=== PATIENT | female | born 2005 | race Caucasian/White ===

== ENCOUNTER → 2024-07-06 09:59 | Outpatient (BNVA) | payer OTHER, SELFPAY | PROVIDERS: Visit Provider Psychiatry & Neurology Psychiatry | DX: Z79.899 Other long term (current) drug therapy (principal) | CPT/HCPCS: 80178 ==

== ENCOUNTER → 2024-07-21 15:22 | Outpatient (BNVA) | payer MEDICAID, SELFPAY | PROVIDERS: Visit Provider Nurse Practitioner Women's Health | DX: Z30.42 Encounter for surveillance of injectable contraceptive (principal) | CPT/HCPCS: 81025 ==

== ENCOUNTER 2024-08-08 20:04 | Emergency (ER) | payer MEDICAID, SELFPAY ==
[2024-08-08 20:10] VITALS: BP 118/85; PULSE 103; RESP 18; TEMP 36.6; O2SAT 98; BMI 38.2
--- NOTE | 2024-08-08 21:20 | W.ED.DENTAL ---
HPI - Dental/Oral General: Chief complaint: Dental/Oral Stated complaint: swollen mouth Time Seen by Provider: 08/08/24 20:15 History of Present Illness: Anita Duran is a 19-year-old female that underwent right wisdom tooth removal on Saturday. Has developed right sided facial pain. Has been taking Tylenol without improvement in her symptoms. She is resting quietly now. She is currently medicated by her care provider. She has received her nightly dose of trazodone and melatonin. She does wake easily though. Related Data Home Medications Medication Instructions Recorded Confirmed acetaminophen 500 mg tablet 500 mg PO Q6H PRN 06/04/24 07/31/24 (Tylenol Extra Strength) bismuth subsalicylate 525 mg/15 mL 525 mg PO Q30M PRN 06/04/24 07/31/24 oral suspension (Pepto-Bismol Max St) cetirizine 10 mg tablet (All Day 10 mg PO DAILY 06/04/24 07/31/24 Allergy (cetirizine)) cholecalciferol (vitamin D3) 25 25 mcg PO DAILY 06/04/24 07/31/24 mcg (1,000 unit) capsule drospirenone 3 mg-ethinyl 1 tab PO DAILY 06/04/24 07/31/24 estradiol 0.02 mg tablet (Lo-Zumandimine (28)) Previous Rx's Medication Instructions Recorded buspirone 15 mg tablet 15 mg PO BID #60 tabs 06/04/24 hydroxyzine HCl 50 mg tablet 75 mg (1.5 x 50 mg) PO BID PRN 06/04/24 anxiety #90 tabs melatonin 10 mg capsule 10 mg PO DAILY #30 caps 06/04/24 trazodone 100 mg tablet 100 mg PO .qhs insomnia #30 tabs 06/04/24 medroxyprogesterone 150 mg/mL 150 mg IM .12 weeks #1 mL 07/21/24 intramuscular suspension (Depo-Provera) lisdexamfetamine 30 mg capsule 30 mg PO QAM 30 days #30 caps 07/31/24 (Vyvanse) lisdexamfetamine 30 mg capsule 30 mg PO QAM 30 days #30 caps 07/31/24 (Vyvanse) lisdexamfetamine 30 mg capsule 30 mg PO QAM 30 days #30 caps 07/31/24 (Vyvanse) lithium carbonate 300 mg capsule See Rx Instructions PO .COMPLEX 07/31/24 #90 caps lurasidone 60 mg tablet (Latuda) 60 mg PO DAILY #30 tabs 07/31/24 ketorolac 10 mg tablet 10 mg PO TID 3 days #9 tabs 08/08/24 Allergies Allergy/AdvReac Type Severity Reaction Status Date / Time Penicillins Allergy Mild rash Verified 08/08/24 20:14 Review of Systems General: Reports: 10 or more systems reviewed and unremarkable except in HPI and below PFSH ED PFSH: Medical History (Updated 08/08/24 @ 21:23 by EMILIANA Suarez) Psychiatric care Social History Smoking and tobacco/nicotine status: never used tobacco/nicotine Physical Exam HENMT: MOUTH IMAGES: 1. Right lower wisdom tooth removal. No evidence of dry socket. TEETH & GINGIVA: Yes teeth discoloration Course Vital Signs: Vital signs: Vital Signs Temperature 97.8 F 08/08/24 20:10 Pulse Rate 103 H 08/08/24 20:10 Respiratory Rate 18 08/08/24 20:10 Blood Pressure 118/85 08/08/24 20:10 Pulse Oximetry 98 08/08/24 20:10 Oxygen Delivery Me thod Room Air 08/08/24 20:10 MDM - Dental/Oral Medical Decision Making Patient evaluated in the emergency department today for dental pain. Here in the ER we gave her 1 dose of Toradol IM. Working to be sending her home on 10 mg of Toradol 3 times a day for 3 days. She needs to follow-up with her dentist on Saturday. Death Clearance Coordinator is agreeable. No radiology studies performed this visit Discharge Plan Discharge Patient Disposition: Home Clinical Impression: Pain, dental Condition: Stable Prescriptions: New ketorolac 10 mg tablet 10 mg PO TID 3 Days Qty: 9 0RF Rx Instructions: Do not take Pepto-Bismol while taking Toradol/ketorolac No Action cetirizine [All Day Allergy (cetirizine)] 10 mg tablet 10 mg PO DAILY drospirenone-ethinyl estradiol [Lo-Zumandimine (28)] 3-0.02 mg tablet 1 tab PO DAILY cholecalciferol (vitamin D3) 25 mcg (1,000 unit) capsule 25 mcg PO DAILY acetaminophen [Tylenol Extra Strength] 500 mg tablet 500 mg PO Q6H PRN Pepto-Bismol Max St 525 mg/15 mL suspension 525 mg PO Q30M PRN Rx Instructions: do not exceed 8 doses in a 24 hour period medroxyprogesterone [Depo-Provera] 150 mg/mL suspension 150 mg IM .12 weeks Qty: 1 1RF Rx Instructions: as directed lisdexamfetamine [Vyvanse] 30 mg capsule 30 mg PO QAM 30 Days Qty: 30 0RF lisdexamfetamine [Vyvanse] 30 mg capsule 30 mg PO QAM 30 Days Qty: 30 0RF lisdexamfetamine [Vyvanse] 30 mg capsule 30 mg PO QAM 30 Days Qty: 30 0RF lithium carbonate 300 mg capsule See Rx Instructions PO .COMPLEX Qty: 90 4RF Rx Instructions: Take one capsule in the morning and two capsules at night. lurasidone [Latuda] 60 mg tablet 60 mg PO DAILY Qty: 30 4RF Rx Instructions: must administer with food (at least 350 calories) buspirone 15 mg tablet 15 mg PO BID Qty: 60 5RF hydroxyzine HCl 50 mg tablet 75 mg PO BID PRN (Reason: anxiety) Qty: 90 5RF melatonin 10 mg capsule 10 mg PO DAILY Qty: 30 5RF trazodone 100 mg tablet 100 mg PO .qhs Qty: 30 5RF Discharge Orders: Discharge ED (Routine); Ordered 08/08/24 Ordered By: Maegan Mcdaniel [facility] [place] Referrals: Nicol Marks DO [Primary Care Provider] - Discharge Diet: Advance as tolerated Discharge Activity: Resume usual activity Patient Instructions: Toothache (ED), Pain Management Activity Restrictions/Additional Instructions: Please take the Toradol as prescribed. Do not take Pepto-Bismol while taking Toradol. Please follow-up with a dentist as planned Coding Level of Care Code ED Pouncing Lathe Operator for Davina Geller
[2024-08-08] MEDS: ketorolac 60 mg/2 mL INJ IM (21:27)
[2024-08-08 21:50] VITALS: BP 127/78; PULSE 72; O2SAT 99
== END 2024-08-08 21:50 | disposition home or self-care (01) ==
PROVIDERS: Emergency Provider Nurse Practitioner; PCP Family Medicine
DX: K08.89 Other specified disorders of teeth and supporting structures (principal)
CPT/HCPCS: 96372; 99284; J1885

== ENCOUNTER 2024-08-09 11:12 | Emergency (ER) | payer MEDICAID, SELFPAY ==
--- NOTE | 2024-08-09 11:22 | ED_ITS ---
HPI - General Adult General: Chief complaint: Dental/Oral Stated complaint: dental pain Time Seen by Provider: 08/09/24 11:16 Source: patient Mode of arrival: ambulatory Limitations: no limitations History of Present Illness: 19-year-old female who had right lower w isdom tooth pulled 1 week ago she has been having pain she is seen here yesterday states that she is not able to take ketorolac as she is on lithium she is continue to have pain rates it a 7 out of 10. Denies any fever Associated symptoms: Reports chest pain; Deny dyspnea, headache(s), nausea, rash or vomiting Related Data Home Medications Medication Instructions Recorded Confirmed bismuth subsalicylate 525 mg/15 mL 525 mg PO Q30M PRN 06/04/24 07/31/24 oral suspension (Pepto-Bismol Max St) cetirizine 10 mg tablet (All Day 10 mg PO DAILY 06/04/24 07/31/24 Allergy (cetirizine)) cholecalciferol (vitamin D3) 25 25 mcg PO DAILY 06/04/24 07/31/24 mcg (1,000 unit) capsule drospirenone 3 mg-ethinyl 1 tab PO DAILY 06/04/24 07/31/24 estradiol 0.02 mg tablet (Lo-Zumandimine (28)) Previous Rx's Medication Instructions Recorded buspirone 15 mg tablet 15 mg PO BID #60 tabs 06/04/24 hydroxyzine HCl 50 mg tablet 75 mg (1.5 x 50 mg) PO BID PRN 06/04/24 anxiety #90 tabs melatonin 10 mg capsule 10 mg PO DAILY #30 caps 06/04/24 trazodone 100 mg tablet 100 mg PO .qhs insomnia #30 tabs 06/04/24 medroxyprogesterone 150 mg/mL 150 mg IM .12 weeks #1 mL 07/21/24 intramuscular suspension (Depo-Provera) lisdexamfetamine 30 mg capsule 30 mg PO QAM 30 days #30 caps 07/31/24 (Vyvanse) lisdexamfetamine 30 mg capsule 30 mg PO QAM 30 days #30 caps 07/31/24 (Vyvanse) lisdexamfetamine 30 mg capsule 30 mg PO QAM 30 days #30 caps 11/08/24 (Vyvanse) lithium carbonate 300 mg capsule See Rx Instructions PO .COMPLEX 07/31/24 #90 caps lurasidone 60 mg tablet (Latuda) 60 mg PO DAILY #30 tabs 07/31/24 ketorolac 10 mg tablet 10 mg PO TID 3 days #9 tabs 08/08/24 acetaminophen 500 mg tablet 500 mg PO Q6H PRN pain #30 tabs 08/09/24 (Tylenol Extra Strength) Allergies Allergy/AdvReac Type Severity Reaction Status Date / Time Penicillins Allergy Mild rash Verified 08/08/24 20:14 Review of Systems Const: Denies: fever(s), chills, body aches or change in appetite ENMT: Denies: throat pain or dental pain Card: Reports: chest pain Resp: Denies: dyspnea GI: Denies: abdominal pain, nausea, vomiting or diarrhea Musc: Denies: neck pain or back pain Skin/Breast: Denies: rash Neuro: Denies: headache(s) PFSH ED PFSH: Medical History Psychiatric care Social History Smoking and tobacco/nicotine status: never used tobacco/nicotine Physical Exam Const: COMMON NORMALS: no acute distress, patient oriented x3 and healthy appearing HENMT: COMMON NORMALS: normocephalic and atraumatic HEAD & SCALP: normocephalic and atraumatic OTHER: Pain where she had her wisdom tooth removed no signs of abscess or infection Neck/C-Spine: COMMON NORMALS: full ROM and supple Chest: COMMONS NORMALS: normal inspection of the chest Resp: COMMON NORMALS: normal respiratory effort Cardio: COMMON NORMALS: regular rate, regular rhythm and No murmurs present (Cardio) RATE: regular rate RHYTHM: regular rhythm Extremity: COMMON NORMALS: normal to inspection Neuro: COMMON NORMALS: patient oriented x3, moves all extremities and no focal motor deficits Psych: COMMON NORMALS: mental status grossly normal, Normal thought process present and cooperative THOUGHT PROCESS: Normal thought process present Skin: COMMON NORMALS: no rashes or lesions noted and no wounds GENERAL SKIN EXAM: no rashes or lesions noted Procedures Nerve Block Nerve Block 1: Time out performed: Yes Local Anesthetic: bupivacaine 0.5% Amount of anesthesia used (mL): 8 Side: right Intraoral Nerve Block: inferior alveolar Procedure Successful: Yes Patient Tolerated Procedure: well Complications: none Course Vital Signs: Vital signs: Vital Signs Temperature 97.9 F 08/09/24 11:23 Pulse Rate 101 H 08/09/24 11:23 Respiratory Rate 18 08/09/24 11:23 Blood Pressure 160/118 08/09/24 11:23 Pulse Oximetry 99 08/09/24 11:23 Oxygen Delivery Me thod Room Air 08/09/24 11:23 MDM - General Adult Medical Decision Making Patient presents here with dental pain after having her wisdom tooth removed exam here is benign no signs of infection did do a dental block she good pain relief we will prescribe her Tylenol she stable for discharge Medical Records I reviewed the patient's medical records. No radiology studies performed this visit Discharge Plan Discharge Patient Disposition: Home Clinical Impression: Pain, dental Condition: Stable Prescriptions: Continued acetaminophen [Tylenol Extra Strength] 500 mg tablet 500 mg PO Q6H PRN (Reason: pain) Qty: 30 0RF No Action cetirizine [All Day Allergy (cetirizine)] 10 mg tablet 10 mg PO DAILY drospirenone-ethinyl estradiol [Lo-Zumandimine (28)] 3-0.02 mg tablet 1 tab PO DAILY cholecalciferol (vitamin D3) 25 mcg (1,000 unit) capsule 25 mcg PO DAILY Pepto-Bismol Max St 525 mg/15 mL suspension 525 mg PO Q30M PRN Rx Instructions: do not exceed 8 doses in a 24 hour period medroxyprogesterone [Depo-Provera] 150 mg/mL suspension 150 mg IM .12 weeks Qty: 1 1RF Rx Instructions: as directed lisdexamfetamine [Vyvanse] 30 mg capsule 30 mg PO QAM 30 Days Qty: 30 0RF lisdexamfetamine [Vyvanse] 30 mg capsule 30 mg PO QAM 30 Days Qty: 30 0RF lisdexamfetamine [Vyvanse] 30 mg capsule 30 mg PO QAM 30 Days Qty: 30 0RF lithium carbonate 300 mg capsule See Rx Instructions PO .COMPLEX Qty: 90 4RF Rx Instructions: Take one capsule in the morning and two capsules at night. lurasidone [Latuda] 60 mg tablet 60 mg PO DAILY Qty: 30 4RF Rx Instructions: must administer with food (at least 350 calories) buspirone 15 mg tablet 15 mg PO BID Qty: 60 5RF hydroxyzine HCl 50 mg tablet 75 mg PO BID PRN (Reason: anxiety) Qty: 90 5RF melatonin 10 mg capsule 10 mg PO DAILY Qty: 30 5RF trazodone 100 mg tablet 100 mg PO .qhs Qty: 30 5RF ketorolac 10 mg tablet 10 mg PO TID 3 Days Qty: 9 0RF Rx Instructions: Do not take Pepto-Bismol while taking Toradol/ketorolac Discharge Orders: Discharge ED (Routine); Ordered 08/09/24 Ordered By: Shannan Arroyo Referrals: Nicol Marks DO [Primary Care Provider] - Discharge Diet: Advance as tolerated Discharge Activity: Resume usual activity Patient Instructions: Toothache (ED) Coding Level of Care Code ED Process Improvement Specialist for Davina Geller
[2024-08-09 11:23] VITALS: BP 160/118; PULSE 101; RESP 18; TEMP 36.6; O2SAT 99; BMI 34.9
[2024-08-09] MEDS: BUPivacaine 0.5% INJ 10 mL INJECTION (11:28)
[2024-08-09] MEDS: HYDROcodone-acetaminophen 5-325 mg Tablet 1 TAB PO (11:49)
[2024-08-09 11:51] VITALS: BP 138/85; PULSE 95; O2SAT 98
== END 2024-08-09 11:52 | disposition home or self-care (01) ==
PROVIDERS: Emergency Provider Emergency Medicine; PCP Family Medicine
DX: K08.89 Other specified disorders of teeth and supporting structures (principal)
CPT/HCPCS: 99283; J3490

== ENCOUNTER → 2024-09-14 16:41 | Outpatient (BNVA) | payer MEDICAID, SELFPAY | PROVIDERS: PCP Family Medicine; Visit Provider Nurse Practitioner Family | DX: R10.2 Pelvic and perineal pain (principal); B35.9 Dermatophytosis, unspecified; B37.9 Candidiasis, unspecified; N94.6 Dysmenorrhea, unspecified | CPT/HCPCS: 81000 ==

== ENCOUNTER → 2024-11-16 13:15 | Outpatient (BNVA) | payer OTHER, SELFPAY | PROVIDERS: PCP Family Medicine; Visit Provider Nurse Practitioner Women's Health | DX: N92.6 Irregular menstruation, unspecified (principal) | CPT/HCPCS: 76856 ==

== ENCOUNTER → 2024-11-20 11:26 | Outpatient (BNVA) | payer OTHER, SELFPAY | PROVIDERS: PCP Family Medicine; Visit Provider Psychiatry & Neurology Psychiatry | DX: Z79.899 Other long term (current) drug therapy (principal) | CPT/HCPCS: 80053; 80061; 80178; 83036; 84443 ==

== ENCOUNTER → 2025-01-05 10:38 | Outpatient (BNVA) | payer MEDICAID, SELFPAY | PROVIDERS: PCP Family Medicine; Visit Provider Registered Nurse Neonatal Intensive Care | DX: R10.9 Unspecified abdominal pain (principal); R39.9 Unspecified symptoms and signs involving the genitourinary system; A08.4 Viral intestinal infection, unspecified | CPT/HCPCS: 81000; 87086 ==

== ENCOUNTER 2025-01-16 23:05 | Emergency (ER) | payer MEDICARE, MEDICAID, SELFPAY ==
[2025-01-16 23:13] VITALS: BP 157/105; PULSE 87; RESP 16; TEMP 36.8; O2SAT 99; BMI 39.9
--- NOTE | 2025-01-16 23:36 | W.ED.DENTAL ---
HPI - Dental/Oral General: Chief complaint: Dental/Oral Stated complaint: ear, mouth and throat pain right side Time Seen by Provider: 01/16/25 23:21 History of Present Illness: Patient was brought in by caregiving staff for concerns of left side face pain. On exam patient appears nontoxic. Patient appears no acute distress. Patient reports dental pain, pointing to her first premolar on the left side of her lower jaw. Related Data Home Medications ?Medication ?Instructions ?Recorded ?Confirmed bismuth subsalicylate 525 mg/15 mL 525 mg PO Q30M PRN 06/04/24 01/05/25 oral suspension (Pepto-Bismol Max St) cetirizine 10 mg tablet (All Day 10 mg PO DAILY 06/04/24 01/05/25 Allergy (cetirizine)) cholecalciferol (vitamin D3) 25 25 mcg PO DAILY 06/04/24 01/05/25 mcg (1,000 unit) capsule Previous Rx's ?Medication ?Instructions ?Recorded acetaminophen 500 mg tablet 500 mg PO Q6H PRN pain #30 tabs 08/09/24 (Tylenol Extra Strength) buspirone 15 mg tablet 15 mg PO BID #60 tabs 09/03/24 hydroxyzine HCl 50 mg tablet 75 mg (1.5 x 50 mg) PO BID PRN 09/03/24 anxiety #90 tabs lithium carbonate 300 mg capsule See Rx Instructions PO .COMPLEX 09/03/24 #90 caps melatonin 10 mg capsule 10 mg PO DAILY #30 caps 09/03/24 nystatin 100,000 unit/gram topical 1 applic topical QID #30 grams 09/14/24 powder lurasidone 40 mg tablet (Latuda) 40 mg PO DAILY #30 tabs 10/30/24 medroxyprogesterone 150 mg/mL 150 mg IM .12 weeks #1 mL 11/19/24 intramuscular suspension (Depo-Provera) lisdexamfetamine 30 mg capsule 30 mg PO QAM 30 days #30 caps 01/01/25 (Vyvanse) lisdexamfetamine 30 mg capsule 30 mg PO QAM 30 days #30 caps 01/01/25 (Vyvanse) lisdexamfetamine 30 mg capsule 30 mg PO QAM 30 days #30 caps 01/01/25 (Vyvanse) clindamycin HCl 300 mg capsule 300 mg PO Q8H 7 days #21 caps 01/16/25 hydrocodone 5 mg-acetaminophen 325 1 tab PO Q8H PRN pain 3 days #9 01/16/25 mg tablet tabs Allergies Allergy/AdvReac Type Severity Reaction Status Date / Time Penicillins Allergy Mild rash Verified 01/05/25 10:18 Review of Systems General: Reports: 10 or more systems reviewed and unremarkable except in HPI and below PFSH ED PFSH: Medical History Psychiatric care Social History Smoking and tobacco/nicotine status: never used tobacco/nicotine Physical Exam Const: COMMON NORMALS: alert HENMT: COMMON NORMALS: normocephalic HEAD & SCALP: normocephalic MOUTH: lip normal and moist mucous membranes abnormal TEETH & GINGIVA: Yes gingiva abnormal (Erythema left lower jaw) Neck/C-Spine: COMMON NORMALS: full ROM Resp: COMMON NORMALS: normal respiratory effort Cardio: COMMON NORMALS: regular rate RATE: regular rate Back/Pelvis: COMMON NORMALS: thoracic and lumbar spine normal to inspection Extremity: COMMON NORMALS: full ROM Neuro: SENSORIUM/ORIENTATION: Yes alert Skin: COMMON NORMALS: turgor normal GENERAL SKIN EXAM: turgor normal Course Vital Signs: Vital signs: Vital Signs Temperature 98.2 F 01/16/25 23:13 Pulse Rate 87 01/16/25 23:13 Respiratory Rate 16 01/16/25 23:13 Blood Pressure 157/105 01/16/25 23:13 Pulse Oximetry 99 01/16/25 23:13 Oxygen Delivery Me thod Room Air 01/16/25 23:13 MDM - Dental/Oral Medical Decision Making 19-year-old female comes in today with complaints of left lower jaw pain. Patient lives at a independent living center and was brought in by caregiver staff. Caregiver staff says patient is been complaining of her left lower jaw hurting going up into her ear ear and neck. Patient points to a tooth. On exam patient has some erythema to the gingiva of the left lower jaw but no obvious abscess. Posterior pharynx is normal. Tenderness is noted in the left submandibular area. Differential diagnosis includes but not limited to sialoadenitis, dental infection, pharyngitis, TMJ syndrome. Patient points to his particular tooth and I believe most likely she has a small periapical abscess forming. Will go ahead and start her on some antibiotic and recommend dentist follow-up. Patient and caregiver both reported understanding. No radiology studies performed this visit Discharge Plan Discharge Patient Disposition: Home Clinical Impression: Abscess, dental Condition: Stable Prescriptions: New hydrocodone-acetaminophen 5-325 mg tablet 1 tab PO Q8H PRN (Reason: pain) 3 Days Qty: 9 0RF clindamycin HCl 300 mg capsule 300 mg PO Q8H 7 Days Qty: 21 0RF No Action cetirizine [All Day Allergy (cetirizine)] 10 mg tablet 10 mg PO DAILY cholecalciferol (vitamin D3) 25 mcg (1,000 unit) capsule 25 mcg PO DAILY Pepto-Bismol Max St 525 mg/15 mL suspension 525 mg PO Q30M PRN Rx Instructions: do not exceed 8 doses in a 24 hour period nystatin 100,000 unit/gram powder 1 applic topical QID Qty: 30 0RF lisdexamfetamine [Vyvanse] 30 mg capsule 30 mg PO QAM 30 Days Qty: 30 0RF lisdexamfetamine [Vyvanse] 30 mg capsule 30 mg PO QAM 30 Days Qty: 30 0RF lisdexamfetamine [Vyvanse] 30 mg capsule 30 mg PO QAM 30 Days Qty: 30 0RF lurasidone [Latuda] 40 mg tablet 40 mg PO DAILY Qty: 30 11RF Rx Instructions: must administer with food (at least 350 calories) buspirone 15 mg tablet 15 mg PO BID Qty: 60 11RF hydroxyzine HCl 50 mg tablet 75 mg PO BID PRN (Reason: anxiety) Qty: 90 11RF lithium carbonate 300 mg capsule See Rx Instructions PO .COMPLEX Qty: 90 11RF Rx Instructions: Take one capsule in the morning and two capsules at night. melatonin 10 mg capsule 10 mg PO DAILY Qty: 30 11RF medroxyprogesterone [Depo-Provera] 150 mg/mL suspension 150 mg IM .12 weeks Qty: 1 1RF Rx Instructions: as directed acetaminophen [Tylenol Extra Strength] 500 mg tablet 500 mg PO Q6H PRN (Reason: pain) Qty: 30 0RF Discharge Orders: Discharge ED (Routine); Ordered 01/16/25 Ordered By: Nate Toney Referrals: Nicol Marks DO [Primary Care Provider] - Discharge Diet: Usual diet Discharge Activity: Increase activity as tolerated Patient Instructions: Toothache (ED) Activity Restrictions/Additional Instructions: Follow-up with dentist for definitive care. Continue with acetaminophen and hydrocodone for pain. Encourage plenty of fluids. May use ice or heat for further pain relief. Give antibiotics as directed. Return to ER for new concerns. Print Language: Sami Coding Level of Care Code ED Pensions Retirement Plan Specialist for Davina Geller
[2025-01-16] MEDS: HYDROcodone-acetaminophen 5-325 mg Tablet 1 TAB PO (23:46)
[2025-01-16] MEDS: clindamycin 150 mg Capsule 300 MG PO (23:47)
== END 2025-01-16 23:50 | disposition home or self-care (01) ==
PROVIDERS: Emergency Provider Nurse Practitioner Family; PCP Family Medicine
DX: K04.7 Periapical abscess without sinus (principal)
CPT/HCPCS: 99283; J9999

== ENCOUNTER 2025-03-10 13:33 | Emergency (ER) | payer MEDICARE, MEDICAID, SELFPAY ==
[2025-03-10 13:36] VITALS: BP 142/91; PULSE 90; RESP 16; TEMP 36.8; O2SAT 100; BMI 41.5
--- NOTE | 2025-03-10 13:43 | ED.C_ITS ---
HPI - Psych General: Chief Complaint: Psychiatric Symptoms Stated Complaint: MHE Time Seen by Provider: 03/10/25 13:34 Source: patient and EMS Mode of arrival: EMS Limitations: no limitations History of Present Illness: 19-year-old female is here from group [facility] has a history and electro disability got upset today over what she had for lunch and had an anger outburst she is now calm she never made any suicidal homicidal thoughts she states she was just angry no longer angry Associated symptoms: Deny depression Related Data Home Medications ?Medication ?Instructions ?Recorded ?Confirmed bismuth subsalicylate 525 mg/15 mL 525 mg PO Q30M PRN 06/04/24 01/29/25 oral suspension (Pepto-Bismol Max St) cetirizine 10 mg tablet (All Day 10 mg PO DAILY 01/29/25 Allergy (cetirizine)) cholecalciferol (vitamin D3) 25 25 mcg PO DAILY 01/29/25 mcg (1,000 unit) capsule Previous Rx's ?Medication ?Instructions ?Recorded acetaminophen 500 mg tablet 500 mg PO Q6H PRN pain #30 tabs 08/09/24 (Tylenol Extra Strength) melatonin 10 mg capsule 10 mg PO DAILY #30 caps 08/23 11/16 nystatin 100,000 unit/gram topical 1 applic topical QI D #30 grams 09/14/24 powder buspirone 15 mg tablet 15 mg PO BID PTSD #60 tabs 0 01/18/25 hydroxyzine HCl 50 mg tablet 75 mg (1.5 x 50 mg) PO BI D PRN 01/18/25 anxiety #90 tabs lisdexamfetamine 30 mg capsule 30 mg PO QAM ADHD 30 da ys #30 caps 01/18/25 (Vyvanse) lisdexamfetamine 30 mg capsule 30 mg PO QAM ADHD 30 da ys #30 caps 01/18/25 (Vyvanse) lisdexamfetamine 30 mg capsule 30 mg PO QAM ADHD 30 da ys #30 caps 01/18/25 (Vyvanse) lithium carbonate 300 mg capsule See Rx Instructions P O .COMPLEX 01/18/25 irritability, mood swings #90 caps lurasidone 40 mg tablet (Latuda) 40 mg PO DAILY irrita bility, mood 01/18/25 swings #30 tabs medroxyprogesterone 150 mg/mL 150 mg IM .12 weeks #1 m L 01/25/25 intramuscular suspension (Depo-Provera) Allergies Allergy/AdvReac Type Severity Reaction Status Date / Time Penicillins Allergy Mild rash Verified 01/29/25 12:52 Review of Systems Const: Denies: fever(s), chills, body aches or change in appetite ENMT: Denies: throat pain or dental pain Card: Denies: chest pain Resp: Denies: dyspnea GI: Denies: abdominal pain, nausea, vomiting or diarrhea Musc: Denies: neck pain or back pain Skin/Breast: Denies: rash Neuro: Denies: headache(s) Psych: Denies: depression PFSH ED PFSH: Medical History Psychiatric care Social History Smoking and tobacco/nicotine status: never used tobacco/nicotine Physical Exam Const: COMMON NORMALS: no acute distress, patient oriented x3 and healthy appearing HENMT: COMMON NORMALS: normocephalic and atraumatic HEAD & SCALP: normocephalic and atraumatic Eye: COMMON NORMALS: conjunctivae normal CONJUNCTIVA: Yes conjunctivae normal Neck/C-Spine: COMMON NORMALS: full ROM and supple Chest: COMMONS NORMALS: normal inspection of the chest Resp: COMMON NORMALS: normal respiratory effort Cardio: COMMON NORMALS: regular rate RATE: regular rate Extremity: COMMON NORMALS: normal to inspection and full ROM Neuro: COMMON NORMALS: patient oriented x3, moves all extremities and no focal motor deficits Psych: COMMON NORMALS: mental status grossly normal, Normal thought process present and cooperative THOUGHT PROCESS: Normal thought process present Skin: COMMON NORMALS: no rashes or lesions noted and no wounds GENERAL SKIN EXAM: no rashes or lesions noted Course Vital Signs: Vital signs: Vital Signs Temperature 98.3 F 03/10/25 13:36 Pulse Rate 90 03/10/25 13:36 Respiratory Rate 16 03/10/25 13:36 Blood Pressure 142/91 03/10/25 13:36 Pulse Oximetry 100 03/10/25 13:36 Oxygen Delivery Me thod Room Air 03/10/25 13:36 MDM - Psych Medical Decision Making Patient presents here with anger outburst she is well-appearing here she is at her baseline not SI or HI stable for discharge back to snf Medical Records I reviewed the patient's medical records. No radiology studies performed this visit Discharge Plan Discharge Patient Disposition: Home Clinical Impression: Outbursts of anger Condition: Stable Prescriptions: No Action cetirizine [All Day Allergy (cetirizine)] 10 mg tablet 10 mg PO DAILY cholecalciferol (vitamin D3) 25 mcg (1,000 unit) capsule 25 mcg PO DAILY Pepto-Bismol Max St 525 mg/15 mL suspension 525 mg PO Q30M PRN Rx Instructions: do not exceed 8 doses in a 24 hour period nystatin 100,000 unit/gram powder 1 applic topical QID Qty: 30 0RF medroxyprogesterone [Depo-Provera] 150 mg/mL suspension 150 mg IM .12 weeks Qty: 1 3RF Rx Instructions: as directed melatonin 10 mg capsule 10 mg PO DAILY Qty: 30 11RF hydroxyzine HCl 50 mg tablet 75 mg PO BID PRN (Reason: anxiety) Qty: 90 11RF lisdexamfetamine [Vyvanse] 30 mg capsule 30 mg PO QAM 30 Days Qty: 30 0RF lisdexamfetamine [Vyvanse] 30 mg capsule 30 mg PO QAM 30 Days Qty: 30 0RF lisdexamfetamine [Vyvanse] 30 mg capsule 30 mg PO QAM 30 Days Qty: 30 0RF buspirone 15 mg tablet 15 mg PO BID Qty: 60 11RF lurasidone [Latuda] 40 mg tablet 40 mg PO DAILY Qty: 30 11RF Rx Instructions: must administer with food (at least 350 calories) lithium carbonate 300 mg capsule See Rx Instructions PO .COMPLEX Qty: 90 11RF Rx Instructions: Take one capsule in the morning and two capsules at night. acetaminophen [Tylenol Extra Strength] 500 mg tablet 500 mg PO Q6H PRN (Reason: pain) Qty: 30 0RF Discharge Orders: Discharge ED (Routine); Ordered 03/10/25 Ordered By: Shannan Arroyo Referrals: Nicol Marks DO [Referring, Family Practice] Discharge Diet: Advance as tolerated Discharge Activity: Resume usual activity Patient Instructions: Mood Disorders (ED) Print Language: Uzbek Coding Level of Care Code ED Aircraft Machinist Helper for Davina Geller
== END 2025-03-10 13:49 | disposition home or self-care (01) ==
PROVIDERS: Emergency Provider Emergency Medicine
DX: R45.4 Irritability and anger (principal)
CPT/HCPCS: 99283

== ENCOUNTER → 2025-07-16 10:51 | Outpatient (BNVA) | payer MEDICARE, MEDICAID, OTHER, SELFPAY | PROVIDERS: Visit Provider Psychiatry & Neurology Psychiatry | DX: Z79.899 Other long term (current) drug therapy (principal) | CPT/HCPCS: 80053; 80178; 84443 ==